=== PATIENT | female | born 1985 | race Caucasian/White ===

== ENCOUNTER 2018-05-19 09:27 | Emergency (ER) | END 2018-05-19 10:27 | disposition home or self-care (01) ==

== ENCOUNTER 2018-05-19 10:41 | Outpatient (CLI) | END 2018-05-19 12:25 | disposition home or self-care (01) ==

== ENCOUNTER 2018-06-24 11:20 | Inpatient (IN) | END 2018-06-27 15:25 | disposition home or self-care (01) | DRG 807 ==